=== PATIENT | female | born 1980 | race Caucasian/White ===

== ENCOUNTER 2019-02-22 15:02 | Outpatient (CLI) | payer OTHER | END 2019-02-22 20:26 | disposition home or self-care (01) | LOC: NST 15:02 | DX: O26.893 Other specified pregnancy related conditions, third trimester (principal); R10.2 Pelvic and perineal pain ==

== ENCOUNTER 2019-03-04 16:06 | Outpatient (CLI) | payer OTHER | END 2019-03-04 17:10 | disposition home or self-care (01) | LOC: NST 16:06 | DX: Z34.83 Encounter for supervision of other normal pregnancy, third trimester (principal) ==

== ENCOUNTER 2019-03-08 11:34 | Outpatient (CLI) | payer OTHER | END 2019-03-08 12:35 | disposition home or self-care (01) | LOC: NST 11:34 | DX: Z34.83 Encounter for supervision of other normal pregnancy, third trimester (principal) ==

== ENCOUNTER 2019-03-14 10:54 | Outpatient (CLI) | payer OTHER | END 2019-03-14 11:42 | disposition home or self-care (01) | LOC: NST 10:54 | DX: Z34.83 Encounter for supervision of other normal pregnancy, third trimester (principal); O09.73 Supervision of high risk pregnancy due to social problems, third trimester ==

== ENCOUNTER 2019-03-17 10:31 | Outpatient (CLI) | payer OTHER | END 2019-03-17 12:42 | disposition home or self-care (01) | LOC: NST 10:31 | DX: Z34.83 Encounter for supervision of other normal pregnancy, third trimester (principal) ==

== ENCOUNTER 2020-03-20 14:12 | Day surgery (SDC) | payer OTHER ==
[~2020-03-20] VITALS: Ht 170.2 cm; Wt 55.8 kg
--- NOTE | 2020-03-20 07:40 | NUR ---
PTE REFERIDA POR PHELPS DR CORNEJO SE UBICA PACINETE EN OBSERVACION POR SANGRADO VAGINAL SE SANDHYA S/V Y SE ORIENTA PACIENTE
== END 2020-03-20 21:00 | disposition home or self-care (01) ==
LOC: CIR.AMB 14:12 → O/R 20:35 → CIR.AMB 21:00
PROVIDERS: ATTEND Obstetrics & Gynecology
DX: O03.1 Delayed or excessive hemorrhage following incomplete spontaneous abortion (principal); Z20.828 Contact with and (suspected) exposure to other viral communicable diseases

== ENCOUNTER 2020-12-20 14:50 | Outpatient (CLI) | payer OTHER | END 2020-12-20 15:30 | disposition home or self-care (01) | LOC: NST 14:50 | PROVIDERS: ATTEND Obstetrics & Gynecology | DX: Z34.82 Encounter for supervision of other normal pregnancy, second trimester (principal) ==

== ENCOUNTER → 2023-02-05 | Outpatient (CLI) | payer OTHER | END | disposition home or self-care (01) | LOC: RAD 11:17 | PROVIDERS: ATTEND Physical Medicine & Rehabilitation | DX: M54.2 Cervicalgia (principal); M54.6 Pain in thoracic spine; M54.59 Other low back pain ==